=== PATIENT | female | born 1980 | race Caucasian/White ===

== ENCOUNTER 2018-04-22 01:00 | Emergency (ER) | payer SELFPAY ==
[~2018-04-22] VITALS: Ht 162.6 cm; Wt 54.4 kg
[2018-04-22 01:05] VITALS: BP 102/64; Ht 162.6 cm; Wt 54.4 kg
== END 2018-04-22 03:15 | disposition left against medical advice (07) ==
LOC: ED 01:00
DX: Z53.21 Procedure and treatment not carried out due to patient leaving prior to being seen by health care provider (principal)